=== PATIENT | male | born 1975 | race Hispanic/Latino ===

== ENCOUNTER 2017-12-16 07:47 | Day surgery (SDC) | payer BC ==
[2017-12-09 11:34] VITALS: BMI 32.5
[2017-12-16] MEDS ORDERED: Propofol 10 mg/ml Inj (20 ML) ONE ×2 (08:58→09:23)
[2017-12-16] MEDS ORDERED: Sodium Chloride 0.9% 1,000 ML IV SCH (10:00)
[2017-12-16 10:43] VITALS: BP 128/78; PULSE 69; RESP 19; TEMP 97.7; O2SAT 97
== END 2017-12-16 11:10 | disposition home or self-care (01) ==
LOC: ENDO 07:47
PROVIDERS: ATTEND Internal Medicine Gastroenterology
DX: K22.10 Ulcer of esophagus without bleeding (principal); K20.9 Esophagitis, unspecified; K44.9 Diaphragmatic hernia without obstruction or gangrene; K29.70 Gastritis, unspecified, without bleeding; K29.80 Duodenitis without bleeding; K31.9 Disease of stomach and duodenum, unspecified; K64.0 First degree hemorrhoids; Z83.71 Family history of colonic polyps
CPT/HCPCS: 43239; 45378; 88305; 88312; 88342; J2001; J2704; J7030; J7040